=== PATIENT | female | born 2005 | race Caucasian/White ===

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

== ENCOUNTER 2024-09-16 01:48 | Emergency (ER) | payer BC, SELFPAY ==
--- NOTE | ~2024-09-16 | CT_ITS ---
CLINICAL HISTORY: RLQ pain CT abdomen and pelvis with contrast Comparison: None Findings: No consolidation or effusion. Unremarkable gallbladder and solid organs. No urolithiasis. No bowel obstruction, pneumoperitoneum, or pneumatosis. Mild prominence of the mesenteric lymph nodes, particularly within the right lower quadrant. Pelvic contents unremarkable. Nondilated gas-filled appendix. The bones are intact. IMPRESSION: No evidence of acute appendicitis. The appendix is nondilated and gas-filled. No obstructive uropathy or biliary obstruction. No bowel inflammation. Prominent mesenteric lymph nodes, particularly within the right lower quadrant. Consider mesenteric adenitis. This document has been electronically signed by: Lissy Sotelo MD on 09/16/2024 07:04:31
[2024-09-16 01:54] VITALS: BP 119/71; PULSE 94; RESP 20; TEMP 36.8; O2SAT 98; BMI 39.5
[2024-09-16 02:12] LABS: MANUAL DIFF FLAG NO
[2024-09-16 02:18] LABS: Basophils Percent Auto 0.2 % (0-2); Eosinophils Absolute Auto 0.1 X10*3/uL (0.0-0.4); Eosinophils Percent Auto 0.7 % (0-4); Hematocrit 40.9 % (37.0-47.0); Hemoglobin 13.8 g/dl (12.0-16.0); Imm Gran Abs Auto 0.08 X10*3/uL (0.00-0.03); Imm Gran Pct Auto 0.4 % (0.0-0.4); Lymphocytes Absolute Auto 2.3 X10*3/uL (1.2-4.9); Lymphocytes Percent Auto 12.5 % (20-40); Mean Corpuscular HGB Conc 33.7 g/dl (31.0-35.0); Mean Corpuscular Hemoglobin 27.6 pg (27.0-33.0); Mean Corpuscular Volume 81.8 fL (80.0-98.0); Mean Platelet Volume 8.1 fL (9.4-12.3); Monocytes Percent Auto 5.6 % (2-11); Neutrophils Absolute Auto 14.6 x10*3/uL (2.0-8.3); Neutrophils Percent Auto 80.6 % (45-73); Platelet Count 384 X10*3/uL (160-400); Red Cell Distribution Width 13.4 % (11.0-16.0); White Blood Count 18.1 X10*3/uL (4.8-10.8)
[2024-09-16 02:38] LABS: Alanine Aminotransferase 14 U/L (0-31); Albumin Level 3.8 g/dL (3.5-5.0); Alkaline Phosphatase 90 U/L (39-117); Anion Gap 15 (12-20); Aspartate Amino Transferase 15 U/L (5-31); Bilirubin Total 0.3 mg/dL (0.0-1.0); Blood Urea Nitrogen 12 mg/dL (9-16); Calcium 9.6 mg/dL (8.4-10.2); Carbon Dioxide 22 mmol/L (22-29); Chloride 107 mmol/L (96-108); Creatinine Clr Calc Pharmacy 158.9; Estimated Glomerular Filt Rate > 60; Glucose Random 141 mg/dL (60-115); Potassium 3.7 mmol/L (3.3-5.1); Sodium 140 mmol/L (135-145); Total Protein 7.9 g/dL (6.5-8.0)
[2024-09-16] MEDS: Ondansetron ODT 4 MG TAB.RAPDIS TRANSLINGU (02:38)
--- NOTE | 2024-09-16 02:39 | PC.NURSE ---
medicated per mar for nausea.
[2024-09-16 04:57] VITALS: BP 130/76; PULSE 88; RESP 16; TEMP 37; O2SAT 96
--- NOTE | 2024-09-16 05:17 | ED_ITS ---
HPI - Abdominal Pain General Chief Complaint: Abdominal Pain Stated Complaint: back/stomach pain Time Seen by Provider: 09/16/24 05:10 Source: patient Mode of arrival: ambulatory Limitations: no limitations History of Present Illness ED Provider: Dr. Nancy Wei HPI narrative: Patient comes to the emergency room complaining of right-sided flank pain and right lower quadrant pain . Symptoms started approximately 4 hours ago. Patient states he has been having nausea and vomiting. Denies hematuria or dysuria, no fevers or chills. Related Data Home Medications ?Medication ?Instructions ?Recorded ?Confirmed ibuprofen 600 mg tablet 600 mg PO Q8H PRN headache 10/26/22 10/26/22 sumatriptan succinate 25 mg tablet 0 mg PO 10/26/22 10/26/22 Previous Rx's ?Medication ?Instructions ?Recorded ketorolac 10 mg tablet 10 mg PO Q8H #10 tabs 09/16/24 Allergies Allergy/AdvReac Type Severity Reaction Status Date / Time No Known Allergies Allergy Verified 09/16/24 01:54 [No Known Allergies*] Review of Systems Review of Systems Constitutional : No Weight loss, No Fever, No Chills, No Night Sweats, No Fatigue, No Malaise ENT/Mouth : No Hearing loss, No Ear Pain, No Nasal Congestion, No Sinus Pain, No Hoarseness, No sore throat, No Rhinorrhea, No Swallowing Difficulty Eyes: No Eye Pain, No Swelling, No Redness, No Foreign Body, No Discharge, No Vision Changes Cardiovascular : No Chest Pain, No SOB, No Dyspnea on Exertion, No Orthopnea, No Edema, No Palpitations Respiratory : No Cough, No Sputum, No Wheezing, No Smoke Exposure, No Dyspnea Gastrointestinal : Complaining of nausea and vomiting,, No Diarrhea, No Constipation, complaining of periumbilical and right lower quadrant pain and right CVA pain Genitourinary : no irregular bleeding, No Dysuria, No Urinary Frequency, No Hematuria, No Urinary Incontinence, No Urgency, No Flank Pain, No Urinary Flow Changes, No Hesitancy Musculoskeletal : No joint pain, No Myalgias, No Joint Swelling Skin : No Skin Lesions, No rash Neuro : No Weakness, No Numbness, No Paresthesias, No Loss of Consciousness, No Dizziness, No Headache Psych : No Anxiety/Panic, No Depression, No SI/HI/AH/VH, No Social Issues, Heme/Lymph: No Bruising, No Bleeding,No Lymphadenopathy Endocrine : No Polyuria, No Polydipsia, No Temperature Intolerance [facility] Past Medical History Medical History (Updated 09/16/24 @ 07:15 by Nancy Wei MD) Familial hyperlipidemia Anxiety and depression Social History Social History Smoked in Last 30 Days: No Use of substances other than those prescribed or required for medical reasons: No Advance Directives: No Advance Directives Information Provided: Yes Do you have a plan to hurt others: No Plan Physical Exam ED Vital Signs: Vital Signs - 24 hr 09/16/24 01:54 09/16/24 04:57 Temperature 98.3 F 98.6 F Pulse Rate 94 88 Respiratory Rate 20 16 Blood Pressure 119/71 130/76 Pulse Oximetry 98 96 Oxygen Delivery Method Room Air Room Air BMI result Body Mass Index 39.5 Const Other: Appearance: Alert. Oriented X3. No acute distress. Eyes: Pupils equal, round and reactive to light. ENT: Pharynx normal. Neck: Normal inspection. Neck supple. No lymph nodes noted. No crepitus CVS: Normal heart rate and rhythm. Pulses normal. Normal S1 and S2 Respiratory: No respiratory distress. Breath sounds normal. No Wheezing. No rales Abdomen: Soft tenderness to palpation in the periumbilical and right lower quadrant, no rebound or guarding, pain to palpation on the right flank, negative Hernandez's sign Skin: Skin warm and dry. Normal skin color. Normal skin turgor. Extremities: No lower extremity edema. No Lacerations. No Rash Neuro: Oriented X 3. No motor deficit. No sensory deficit. Moving all extremities. No slurred speech. CN 2 through 12 grossly intact Psych: calm, cooperative, normal affect Course Course Course Narrative: the patient complaining of nausea vomiting, right lower quadrant pain, periumbilical pain. Patient receiving IV fluids, Zofran and ketorolac. Discussed with the patient that she may have a UTI/pyelonephritis, kidney stone versus appendicitis. Patient to be NPO at this time CT scan pending Medical Decision Making Medical Decision Making MDM Narrative: My interpretation of labs: Patient's white blood cell count 18.1. Normal chemistry, hCG negative. Urinalysis negative for UTI, patient has trace leukocyte esterase but there is a large amount of squamous epithelial cells. Patient denies UTI symptoms. Patient states that after the Toradol that was given to her, she does feel better. Patient states that now she has no pain in the suprapubic area, has no pain in the right lower quadrant, patient states that now she has a bit of back pain on the right. Denies any overall patient states that she feels better. CT scan did not show any acute abnormality that would indicate acute appendicitis. Patient has prominent mesenteric lymph nodes in the right lower quadrant, likely mesenteric adenitis. Given the location of the pain, an ultrasound / Doppler of the ovaries was considered. However, patient no longer has any pain in the abdomen. No complaining of middle back pain Differential Diagnosis Differential Diagnoses: The differential diagnosis associated with the presentation includes ( appendicitis, diverticulitis, SBO, ovarian cysts) Lab Data MDM Lab Attestation statement: I reviewed the patient's lab results. 09/16/24 02:08 09/16/24 02:08 Labs: Lab Results 09/16/24 09/16/24 Range/Units 02:08 05:37 WBC 18.1 H (4.8-10.8) X10*3/uL RBC 5.00 (4.20-5.50) X10*6/uL Hgb 13.8 (12.0-16.0) g/dl Hct 40.9 (37.0-47.0) % MCV 81.8 (80.0-98.0) fL MCH 27.6 (27.0-33.0) pg MCHC 33.7 (31.0-35.0) g/dl RDW 13.4 (11.0-16.0) % Plt Count 384 (160-400) X10*3/uL MPV 8.1 L (9.4-12.3) fL Immature Gran % (Auto) 0.4 (0.0-0.4) % Neut % (Auto) 80.6 H (45-73) % Lymph % (Auto) 12.5 L (20-40) % [place] % (Auto) 5.6 (2-11) % Eos % (Auto) 0.7 (0-4) % Baso % (Auto) 0.2 (0-2) % Lymph # (Auto) 2.3 (1.2-4.9) X10*3/uL [place] # (Auto) 1.0 (0.1-1.2) X10*3/uL Eos # (Auto) 0.1 (0.0-0.4) X10*3/uL Baso # (Auto) 0.0 (0.0-0.2) X10*3/uL Abs Immat Gran (auto) 0.08 H (0.00-0.03) X10*3/uL Absolute Neuts (auto) 14.6 H (2.0-8.3) x10*3/uL Absolute Nucleated RBC 0.000 (0.0-0.012) X10*3/uL Nucleated RBC % (auto) 0.0 (0.0-0.2) /100WBC Sodium 140 (135-145) mmol/L Potassium 3.7 (3.3-5.1) mmol/L Chloride 107 (96-108) mmol/L Carbon Dioxide 22 (22-29) mmol/L Anion Gap 15 (12-20) BUN 12 (9-16) mg/dL Creatinine 0.67 (0.5-1.4) mg/dL Estim Creat Clear Calc 158.9 Estimated GFR > 60 Random Glucose 141 H (60-115) mg/dL Calcium 9.6 (8.4-10.2) mg/dL Total Bilirubin 0.3 (0.0-1.0) mg/dL AST 15 (5-31) U/L ALT 14 (0-31) U/L Alkaline Phosphatase 90 (39-117) U/L Total Protein 7.9 (6.5-8.0) g/dL Albumin 3.8 (3.5-5.0) g/dL Beta HCG, Quant < 2 mIU/mL Urine Color Dark Yellow Urine Appearance Cloudy Urine pH 5.5 (5.0-9.0) Ur Specific [place] >= 1.030 H (1.005-1.025) Urine Protein Trace (Neg-Trace) mg/dL Urine Glucose (UA) Negative (Negative) mg/dL Urine Ketones 15 (Negative) mg/dL Urine Blood Negative (Negative) Urine Nitrite Negative (Negative) Ur Leukocyte Esterase Trace H (Negative) Urine RBC 0-2 (0-2) /HPF Urine WBC 11-20 H (0-5) /HPF Ur Squamous Epith Cells 6-10 (0-2) /HPF Urine Bacteria 4+ (None Seen) Hyaline Casts 3-5 (0-2) /LPF Independent Interpretation I performed an independent interpretation of an: CT Scan Radiology Impression Discussion of test interpretation with radiology: I have reviewed the radiologist's reading. Radiologist Impression: No consolidation or effusion. Unremarkable gallbladder and solid organs. No urolithiasis. No bowel obstruction, pneumoperitoneum, or pneumatosis. Mild prominence of the mesenteric lymph nodes, particularly within the right lower quadrant. Pelvic contents unremarkable. Nondilated gas-filled appendix. The bones are intact. IMPRESSION: No evidence of acute appendicitis. The appendix is nondilated and gas-filled. No obstructive uropathy or biliary obstruction. No bowel inflammation. Prominent mesenteric lymph nodes, particularly within the right lower quadrant. Consider mesenteric adenitis. Medications Administered Discontinued Medications Generic Name Dose Route Start Last Admin Trade Name Freq PRN Reason Stop Dose Admin Sodium Chloride 1,000 mls @ 999 mls/hr 09/16/24 05:16 09/16/24 06:55 Ns IVCONT 09/16/24 06:16 Infused .Q1H1M ONE Infusion Iohexol 85 ml 09/16/24 06:21 09/16/24 06:21 Iohexol 350 Mg/Ml 100 Ml Infus..Btl IV 09/16/24 06:22 85 ml ONCE ONE Administration Ketorolac Tromethamine 30 mg 09/16/24 05:16 09/16/24 05:33 Ketorolac Tromethamine 30 Mg/Ml Vial IVPUSH 09/16/24 05:17 30 mg ONCE ONE Administration Ondansetron HCl 4 mg 09/16/24 02:33 09/16/24 02:38 Ondansetron Odt 4 Mg Tab.Rapdis TRANSLINGU 09/16/24 02:34 4 mg ONCE ONE Administration Ondansetron HCl 4 mg 09/16/24 05:16 09/16/24 05:33 Ondansetron Hcl 4 Mg/2 Ml Vial IVPUSH 09/16/24 05:17 4 mg ONCE ONE Administration Critical Care Time Critical Care Time Critical Care Time: Yes Total Critical Care Time: 45 Attestation: Please follow-up with your primary care physician tomorrow. If you have any worsening or new symptoms, please return to the emergency room or call 911 Discharge Plan Discharge Clinical Impression: Mesenteric adenitis Patient Disposition: Home, Self-Care Instructions: Mesenteric Adenitis (ED) Additional Instructions: Please follow-up with your primary care physician tomorrow. If you have any worsening or new symptoms, please return to the emergency room or call 911 Prescriptions: New ketorolac 10 mg tablet 10 mg PO Q8H Qty: 10 0RF Rx Instructions: do not use this medication with ibuprofen or NSAIDs, only Tylenol if needed No Action sumatriptan succinate 25 mg tablet 0 mg PO ibuprofen 600 mg tablet 600 mg PO Q8H PRN (Reason: headache) Print Language: Mauritian
[2024-09-16] MEDS: 0.9 % Sodium Chloride 1,000 ML 999 ML IVCONT (05:31)
[2024-09-16] MEDS: Ketorolac Tromethamine 30 MG/ML VIAL IVPUSH (05:33)
[2024-09-16] MEDS: ondansetron HCL 4 MG/2 ML VIAL IVPUSH (05:33)
[2024-09-16 05:44] LABS: HCG Quantitative < 2 mIU/mL
--- NOTE | 2024-09-16 05:44 | PC.NURSE ---
iv placed, medicated per aug, urine collected and sent.
[2024-09-16 05:55] LABS: Appearance Urine Cloudy; Color Urine Dark Yellow; Glucose Urine UA Negative (Negative); Leukocyte Esterase Urine Trace (Negative); Nitrite Urine Negative (Negative); PH 5.5 (5.0-9.0); Specific Gravity - Urine >= 1.030 (1.005-1.025); UMIC TRIGGER UACC YES; Urine Blood Negative (Negative); Urine Ketones 15 mg/dL (Negative); Urine Protein Trace mg/dL (Neg-Trace)
[2024-09-16 06:03] LABS: Bacteria Urine 4+ (None Seen); RBC Urine 0-2 /HPF (0-2); UACC Culture Trigger YES
[2024-09-16] MEDS: iohexoL 350 MG/ML 100 ML INFUS..BTL 85 ML IV (06:21)
[2024-09-16 07:46] VITALS: BP 131/54; PULSE 110; RESP 20; TEMP 36.7; O2SAT 98
== END 2024-09-16 07:48 | disposition home or self-care (01) ==
PROVIDERS: Emergency Provider Emergency Medicine
DX: I88.0 Nonspecific mesenteric lymphadenitis (principal); M54.50 Low back pain, unspecified; R10.31 Right lower quadrant pain; R11.2 Nausea with vomiting, unspecified; R10.2 Pelvic and perineal pain; Z79.899 Other long term (current) drug therapy
CPT/HCPCS: 36415; 74177; 80053; 81001; 84702; 85025; 87086; 96361; 96374; 96375; 99284; 99285; J1885; J2405; Q9967

== ENCOUNTER → 2024-09-16 05:15 | Outpatient (BNV) | payer BC, SELFPAY | PROVIDERS: Emergency Provider Emergency Medicine; Visit Provider Radiology Diagnostic Radiology | DX: R10.31 Right lower quadrant pain (principal) | CPT/HCPCS: 74177 ==